=== PATIENT | male | born 1995 | race Caucasian/White ===

== ENCOUNTER → 2016-09-26 | Outpatient (CLI) | payer BC ==
--- NOTE | 2016-09-26 20:23 | DI ---
LEFT KNEE, 09/26/2016 1:27 PM: Clinical History: Left knee pain. Previous Exam: None at this facility. 4 views are submitted. There is no acute soft tissue, osseous, or joint abnormality. Reading: Normal left knee exam.
--- NOTE | 2016-09-26 20:23 | DI ---
RIGHT SHOULDER, 09/26/2016 1:27 PM: Clinical History: Right shoulder pain. Previous Exam: None at this facility. 3 views are submitted. There is no acute soft tissue, osseous, or joint abnormality. The visualized p ortions of the right lung including the apex are normal. Reading: Normal right shoulder exam.
== END ==
LOC: ORTHO 16:34
PROVIDERS: ATTEND Physician Assistant
DX: M25.511 Pain in right shoulder (principal); M25.562 Pain in left knee
CPT/HCPCS: 73030; 73564

== ENCOUNTER → 2016-10-05 | Outpatient (CLI) | payer BC ==
--- NOTE | 2016-10-05 10:01 | DI ---
CERVICAL SPINE SERIES, 10/05/2016 9:18 AM: Clinical History: Neck pain. Previous Exam: None at this facility. Upright AP and lateral and upright lateral flexion and extension views are submitted. The vertebral b odies are normal in height and size. The disc spaces are normal. Posterior alignment and lateral mass es are normal. C1 articulates normally with C2 and the occiput in the neutral and extended position. With flexion, there is widening of the distance between the posterior margin of the anterior arch of C1 and the anterior margin of the dens of C2 by 1 mm indicating laxity of the cruciate ligaments. No other instability is noted. Prevertebral soft tissue planes are normal. Readin. With flexion, there is increase in the distance between the anterior arch of C1 and the dens by 1 mm and this is reduced with extension or the head in the neutral position. This would indicate laxit y of the cruciate ligaments. No other instability is noted with flexion and extension maneuvers. 2. The C-spine exam is otherwise normal.
--- NOTE | 2016-10-05 10:15 | DI ---
THORACIC SPINE SERIES, 10/05/2016 9:18 AM: Clinical History: Thoracic back pain. Previous Exam: None at this facility. 2 standing views are submitted. 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 The remaining vertebral bodies are of normal height. The disc spaces are normal in height. The re is mild levoscoliosis of the upper and lower thoracic spine with a mild dextroscoliosis in the mid thoracic spine. The pedicles and posterior elements are normal. There is no paravertebral soft tissue widening. Readin. Anterior wedging of the T7 and T8 vertebral bodies is felt to be developmental. 2. Scoliosis as above.
--- NOTE | 2016-10-05 10:21 | DI ---
LUMBAR SPINE SERIES, 10/05/2016 9:18 AM: Clinical History: Low back pain. Previous Exam: None at this facility. Upright AP and lateral and upright lateral flexion and extension views are submitted. The vertebral b odies are of normal height and size. There is mild levoscoliosis of the thoracolumbar junction with a compensatory mild dextroscoliosis of the lower lumbar spine. There is mild L5-S1 disc space narrowin g. The remaining disc spaces are of normal height. There is no instability with flexion and extension maneuvers. The pedicles and posterior elements are unremarkable. Both SI joints are normal. Readin. Mild L5-S1 disc space narrowing. The remainder of the exam is normal. 2. There is no instability noted with flexion and extension maneuvers.
== END ==
LOC: ORTHO 09:36
PROVIDERS: ATTEND Physician Assistant
DX: M54.2 Cervicalgia (principal); M54.6 Pain in thoracic spine; M54.5 Low back pain; M48.07 Spinal stenosis, lumbosacral region; S43.431D Superior glenoid labrum lesion of right shoulder, subsequent encounter
CPT/HCPCS: 72050; 72072; 72110

== ENCOUNTER → 2016-10-06 | Outpatient (CLI) | payer BC ==
--- NOTE | 2016-10-06 13:21 | DI ---
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 Previous Exam: None at this facility. PA and lateral views of the orbits are submitted. There is no metallic foreign body in the confines o f either orbit. Reading: Normal screening views of the orbits.
--- NOTE | 2016-10-07 15:31 | DI ---
RIGHT SHOULDER JOINT INJECTION FOR MRI SCAN, 10/06/2016 9:05 AM: Clinical History: Right glenoid labrum tear. Previous Exam: None at this facility. A "time out" session was performed to verify the patient's name and date of prior to obtaining informed signed consent prior for this procedure. The patient was informed of benefits and risks, to include but not be limited to: allergies to medications (skin preparation agent, local anesthetic, an d contrast agent); joint infection; and joint pain following the procedure. The area was prepped with ChloraPrep solution. 1% lidocaine without epinephrine was used for intrader mal and subcutaneous local anesthesia. 3 attempts were made to advance the needle in proximity to the joint space. The patient would move as the anesthetic needle was advanced. On the third attempt at a second location, the 22 gauge spinal needle was introduced under fluoroscopy into the joint space wi th a single pass. No joint fluid could be aspirated. 5 mL of a mixture containing 2 mL of Omipaque 30 0 and 10 mL of normal saline was injected into the joint. Fluoroscopy and a single spot film of the a kris were obtained. Because the fluid was "pooling" over the glenoid rather than dispersing into the j oint space, the patient was allowed to gently internally and x-ray rotate the humeral head. Traction was also applied, but the contrast would not entering into the joint space. Because the possibility t hat this was extravasated contrast, no further saline was injected. The patient tolerated the procedu re well and was transferred to the MRI scan suite for the MRI arthrogram. The patient was advised to watch for signs of an infection (including but not limited to: redness, swelling, or fever). The ecline ent was instructed to either contact the x-ray department directly or to report to the Emergency Room immediately if problems arose. The plan was that if the MRI scan showed saline within the joint space, then the study would continue . Also, if the study were sufficiently diagnostic to evaluate the labrum, then a repeat joint injecti on would not be performed. The patient was advised of these options and agreed to the MRI scan today. Reading: Possible extravasation of contrast during injection. However, the dispersion of contrast typically se en with extravasation was not identified. The plan is to await the findings of the MRI scan.
--- NOTE | 2016-10-07 19:48 | DI ---
MRI RIGHT SHOULDER SCAN WITH INTRA-ARTICULAR CONTRAST, 10/06/2016 9:06 AM: Clinical History: Right shoulder pain. Right glenoid labrum tear. Previous Exam: None at this facility. Technique: Axial, coronal, and sagittal fat saturated PD; axial gradient FE; coronal fat saturatedT2 weighted; sagittal T2 weighted. Multiple sequences were repeated with the motion correction "Jet" seq uences because the patient was moving throughout the examination. There is no soft tissue edema or abnormal bone signal pattern. As indicated in the right shoulder inj ection report, no extravasation of contrast is seen and contrast is present in the joint space. The A C joint has a very small amount of fluid but is otherwise normal. There is a type II acromion. There is a small amount of fluid in the subacromion bursa. Minimal tendinosis is noted in the supraspinatus tendon. The infraspinatus, subscapularis, and teres minor tendon and the tendon of the long head of the biceps muscle are normal. There is unusual extension of the inner margin of the glenoid labrum to watson the center of the glenoid fossa in the anteroinferior quadrant. This is verified on all sequence s and is not associated with a tear of that portion of the cartilage. This has the appearance of a pa rtial discoid labrum, analogous to a discoid meniscus of the knee. There is no evidence of a soft tis bassem Bankart lesion. The remainder of the cartilage is intact. There is no muscle atrophy. Readin. Lesion identified. However, in the anteroinferior quadrant, the inner margin of the labrum extend s inward toward the center of the glenoid fossa in the appearance is reminiscent of a partial discoid meniscus of the knee. This would be consistent with a partial discoid labrum of the shoulder. There is no tear in this portion of the labrum. The remainder of the labrum is intact. There is mild arthro sis of the AC joint and minimal tendinosis of the supraspinatus tendon. 2. The tendons of the infraspinatus, teres minor, and subscapularis muscles as well as the tendon of the long head of the biceps muscle are normal. There is a type II acromion.
== END ==
LOC: MRI 08:54 → RAD 08:54
PROVIDERS: ATTEND Physician Assistant
DX: M54.6 Pain in thoracic spine (principal); M25.511 Pain in right shoulder; S43.431D Superior glenoid labrum lesion of right shoulder, subsequent encounter; T15.92XA Foreign body on external eye, part unspecified, left eye, initial encounter; T15.91XA Foreign body on external eye, part unspecified, right eye, initial encounter
CPT/HCPCS: 70030; 73040; 73222

== ENCOUNTER 2016-11-28 09:41 | Day surgery (SDC) | payer BC ==
[~2016-11-28 09:41] MED LIST: LIDOCAINE W/ SODIUM BICARB 0.5 ML SYR ONE; Lactated Ringers 1,000 ML PRIMARY IV ONE; ceFAZolin Inj 2gm (Premix) 50 ML IV ONE
[2016-11-28] MEDS ORDERED: Ropivacaine 0.2% VIAL 20 ML ONE (10:08)
[2016-11-28] MEDS ORDERED: EPINEPHrine Inj (1:1,000) 30mg/30ml vial ONE (10:08)
[2016-11-28] MEDS ORDERED: BUPIVACAINE 0.25% W/ EPI - 10 ML VIAL ONE (10:27)
[2016-11-28] MEDS ORDERED: MIDAZOLAM 5 MG/1 ML ONE (10:27)
[2016-11-28] MEDS ORDERED: fentaNYL Inj 250 MCG/5 ML VIAL ONE (10:27)
[2016-11-28] MEDS ORDERED: ONDANSETRON 4 MG/2 ML VIAL ONE (11:40)
[2016-11-28] MEDS ORDERED: HYDROcodone-APAP 7.5 MG-325 MG TABLET PO PRN (12:10)
[2016-11-28] MEDS ORDERED: BISACODYL 5 MG TABLET PO PRN (12:10)
[2016-11-28] MEDS ORDERED: IBUPROFEN 400 MG TABLET PO PRN (12:10)
[2016-11-28] MEDS ORDERED: NORMAL SALINE 10 ML SYRINGE FLUSH IVP PRN (12:10)
[2016-11-28] MEDS ORDERED: BISACODYL 10 MG SUPPOSITORY RECTAL PRN (12:10)
[2016-11-28] MEDS ORDERED: Prochlorperazine Tab 10 MG TAB PO PRN (12:10)
[2016-11-28] MEDS ORDERED: ONDANSETRON 4 MG/2 ML VIAL IVP PRN (12:10)
[2016-11-28] MEDS ORDERED: CALCIUM CARBONATE 500 MG (TUMS) CHEWABLE TABLET PO PRN (12:10)
[2016-11-28] MEDS ORDERED: MORPHINE SULFATE 2 MG/1 ML IVP PRN (12:10)
[2016-11-28] MEDS ORDERED: diphenhydrAMINE 25 MG CAPSULE PO PRN (12:10)
[2016-11-28] MEDS ORDERED: Ondansetron ODT Tab 8 MG TAB PO PRN (12:10)
[2016-11-28] MEDS ORDERED: MAG HYDROX/AL HYDROX/SIMETH 30 ML SUSP PO PRN (12:10)
[2016-11-28] MEDS ORDERED: ACETAMINOPHEN 325 MG TABLET PO PRN (12:10)
[2016-11-28] MEDS ORDERED: Lactated Ringers 1,000 ML PRIMARY IV SCH (12:15)
--- NOTE | 2016-11-28 12:28 | CRNA.PROCE ---
Nerve Block Documentation - - Safety Measures: Time Out Taken, Site Verified - - Type of Nerve Block Used: Right Interscalene Block Position for Nerve Block: Supine Moniters Used During Block: EKG, SPO2, NIBP Oxygen Sumpplented: Yes Sedation Used - Enter Amount in Comment Field: Midazolam (mg): Yes (2mg iv), Fentanyl (mcg): Yes (100mcg iv) Skin Prep Used: ChloroPrep Technique: Nerve Stimulator Nerve Block Needle Used: 40 mm ProBlk II Stimulation Hz: 1.0 Stimulation Staring mA: 1.2 Stimulation Ending mA: 0.5 Local Anesthetic - Enter Amt in Comment Field: 0.25 % Bupivicaine with Epinephrine 1:200,000 (mL): Yes (40ml)
[2016-11-28 14:06] VITALS: TEMP 98
[2016-11-28 14:12] VITALS: RESP 14
[2016-11-28] MEDS ORDERED: Lactated Ringers 1,000 ML PRIMARY IV ONE (14:50)
== END 2016-11-28 13:20 | disposition home or self-care (01) ==
LOC: SDSC 09:41
PROVIDERS: ATTEND Orthopaedic Surgery
DX: M25.861 Other specified joint disorders, right knee (principal)
CPT/HCPCS: 29870; J0171; J0690; J2704; J2795; J3010; J2250; J2405; J7120